=== PATIENT | female | born 1955 | race Caucasian/White ===

== ENCOUNTER → 2017-07-18 | Outpatient (CLI) | payer BC | END | disposition home or self-care (01) | LOC: KCIC MRI 10:32 | DX: M48.02 Spinal stenosis, cervical region (principal); M50.322 Other cervical disc degeneration at C5-C6 level; M47.892 Other spondylosis, cervical region | CPT/HCPCS: 72141 ==

== ENCOUNTER 2018-03-02 13:48 | Inpatient (IN) | payer BC ==
[~2018-03-02] VITALS: Ht 167.6 cm; Wt 105.7 kg
[~2018-03-02 13:48] MED LIST: ACET325T9 PO; ASPI-612 PO; BUPR150T11 PO; CANA100T PO; CETI10CA PO; CHOL500016 PO; CRESTOR5 MG PO; CYAN25008 PO; CYCL10TA2 PO; DEXL30CA PO; DULO20CA PO; FLUT9.9S NS; HYDR-2758 PO; INSU100C SQ; INSU100V8 SQ; LACT20SO PO; LEVO25TA4 PO; LISI-334 PO; LISI1TAB5 PO; MAGN250T10 PO; MELA3TAB2 PO; MELO7.5T29 PO; METO-239 PO; METO25TA4 PO; NEOM1PAC TP; OLME1TAB21 PO; OLME5TAB4 PO; PREG75CA PO; RIFA550T4 PO; TOPI15CA4 PO
[2018-03-02 16:31] VITALS: BP 140/49
[2018-03-02] MEDS ORDERED: ONDANSETRON ODT 4 MG TAB.RAPDIS. PO PRN (16:45)
[2018-03-02] MEDS ORDERED: INSULIN LISPRO 300 UNITS/3 ML INSULN.PEN. SQ SCH (17:00)
[2018-03-02] MEDS ORDERED: LACTULOSE 20 GM/30 ML SOLUTION. PO PRN (17:30)
[2018-03-02] MEDS: MELOXICAM 7.5 MG TABLET PO SCH (18:10)
[2018-03-02] MEDS: CETIRIZINE HCL 10 MG TABLET. PO SCH (18:10)
[2018-03-02] MEDS: ASPIRIN ENTERIC COATED 81 MG TABLET.DR. PO SCH (18:10)
[2018-03-02] MEDS: IV NORMAL SALINE 1000ML BAG 1,000 ML IV SCH (18:10)
[2018-03-02] MEDS: LISINOPRIL 20 MG TABLET PO SCH (18:10)
[2018-03-02] MEDS: PANTOPRAZOLE 40 MG TABLET.DR. PO SCH (18:11)
[2018-03-02] MEDS ORDERED: INSU300I SQ (18:47)
--- NOTE | 2018-03-02 18:47 | HP ---
ADMIT DATE: 03/02/2018 CHIEF COMPLAINT: Mental status change. HISTORY OF PRESENT ILLNESS: The patient is a pleasant 62-year-old female who presented to ____ ER with mental status change. Basically, they realized she had hepatic encephalopathy. Her ammonia level was 94. They called me. We have now transferred her here for consultation with GI. It should be noted that she has been evaluated at , but they did not want to go back there. They state that the sound designer really did not give much information, but they did say that she did have cirrhosis on liver biopsy. The patient has now been admitted to the medical floor. She is being examined in room 652. PAST MEDICAL HISTORY: Hepatic encephalopathy and constipation; polypharmacy, probable noncompliance; allergic rhinitis; muscle spasms; hypertension; chronic pain; depression; anxiety; diabetes; hypothyroidism; insomnia. ALLERGIES: Multiple including CEPHALEXIN, CODEINE, IODINE, please refer to the chart. FAMILY HISTORY: Her sister from cirrhosis. Her tells me that they think this was from alcohol, but he states that the patient does not drink. SOCIAL HISTORY: The family states she does not drink, smoke or take drugs. I asked them 3 times, they really insist that she does not drink. We are really suspicion she might actually drink, but they insist she does not. MEDICATIONS: Reviewed. She is on 20 of them including vitamin D, melatonin, B12, neomycin, Synthroid, insulin, Dexilant, magnesium, Flonase, lactulose, bupropion, Lyrica, hydrocodone with Tylenol ( probably she should not be on the Tylenol, I will be holding that), aspirin, lisinopril, metoprolol, cyclobenzaprine, Xifaxan, Zyrtec. REVIEW OF SYSTEMS: GENERAL: No history of weight change, weakness or fevers. SKIN: No bruising, hair changes or rashes. EYES: No blurred, double or loss of vision. NOSE AND THROAT: No history of nosebleeds, hoarseness or sore throat. HEART: No history of palpitations, chest pain or shortness of breath on exertion. LUNGS: Denies cough, hemoptysis, wheezing or shortness of breath. GASTROINTESTINAL: Denies changes in appetite, nausea, vomiting, diarrhea or constipation. GENITOURINARY: No history of frequency, urgency, hesitancy or nocturia. NEUROLOGIC: She complains of weakness and mental status change. PSYCHIATRIC: No history of panic, anxiety or depression. ENDOCRINE: No history of heat or cold intolerance, polyuria or polydipsia. EXTREMITIES: Denies muscle weakness, joint pain, pain on walking or stiffness. PHYSICAL EXAMINATION: VITAL SIGNS: Temperature afebrile, pulse 90, respirations 18, blood pressure 149/90. GENERAL: She is alert. She is awake, a little slow, but does seem to know the year and where she is. HEART: Normal S1, S2. LUNGS: Clear. ABDOMEN: Soft, no tenderness. EXTREMITIES: Trace edema. SKIN: No rashes. ENDOCRINE: No thyromegaly. LYMPHATICS: No cervical nodes. HEMATOPOIETIC: No bruising. LABORATORY DATA: Glucose is 161. Other labs are pending. ASSESSMENT AND PLAN: Hepatic encephalopathy with elevated ammonia in a middle-aged female who apparently had a biopsy at , which was consistent with a fatty liver and cirrhosis. I am concerned that she could be a cause of drinker, but again the family insists she does not drink. We will consult Dr. Khalil. Increase her lactulose. Continue her other home meds, but will hold the Tylenol products. Frequent labs, IV fluids. PROGNOSIS: Guarded. XU HUBBARD DO DR: JAI/christina JOB#: [id number] / [id number]
[2018-03-02 19:22] VITALS: BP 131/52
[2018-03-02] MEDS ORDERED: LACTULOSE 20 GM/30 ML SOLUTION. PO SCH (21:00)
[2018-03-02] MEDS ORDERED: INSULIN GLARGINE HUM REC ANLOG 50 UNIT SQ SCH (21:00)
[2018-03-02] MEDS: rifAXIMin 550 MG TABLET PO SCH (21:12)
[2018-03-02] MEDS: buPROPion SR 150 MG TABLET.SA PO SCH (21:12)
[2018-03-02] MEDS: CYCLOBENZAPRINE 10 MG TABLET. PO SCH (21:13)
[2018-03-02] MEDS: PREGABALIN 75 MG CAPSULE PO SCH (21:13)
[2018-03-02] MEDS: METOPROLOL TART IMMED RELEASE 25 MG TABLET. PO SCH (21:13)
[2018-03-02 23:35] VITALS: BP 128/52
[2018-03-03 03:49] VITALS: BP 119/46
[2018-03-03] MEDS: IV NORMAL SALINE 1000ML BAG 1,000 ML IV SCH (06:50)
[2018-03-03 07:00] VITALS: BP 123/48
[2018-03-03] MEDS ORDERED: INSULIN GLARGINE 300 UNITS/3 ML INSULN.PEN. SQ SCH (07:30)
[2018-03-03] MEDS: MELOXICAM 7.5 MG TABLET PO SCH (08:07)
[2018-03-03] MEDS: ASPIRIN ENTERIC COATED 81 MG TABLET.DR. PO SCH (08:07)
[2018-03-03] MEDS: LISINOPRIL 20 MG TABLET PO SCH (08:08)
[2018-03-03] MEDS: PANTOPRAZOLE 40 MG TABLET.DR. PO SCH (08:08)
[2018-03-03] MEDS: buPROPion SR 150 MG TABLET.SA PO SCH ×2 (08:08→21:56)
[2018-03-03] MEDS: LEVOTHYROXINE 150 MCG TABLET PO SCH (08:08)
[2018-03-03] MEDS: rifAXIMin 550 MG TABLET PO SCH ×2 (08:09→21:56)
[2018-03-03] MEDS: CETIRIZINE HCL 10 MG TABLET. PO SCH (08:10)
[2018-03-03] MEDS: METOPROLOL TART IMMED RELEASE 25 MG TABLET. PO SCH ×2 (08:10→21:56)
[2018-03-03] MEDS: PREGABALIN 75 MG CAPSULE PO SCH ×2 (08:11→21:56)
[2018-03-03] MEDS ORDERED: LACTULOSE 20 GM/30 ML SOLUTION. PO SCH ×2 (09:00→14:00)
[2018-03-03] MEDS ORDERED: ONDANSETRON PF 4 MG/2 ML VIAL. IV PRN (09:30)
[2018-03-03] MEDS ORDERED: IBUPROFEN 600 MG TABLET. PO PRN (09:30)
[2018-03-03] MEDS ORDERED: ONDANSETRON ODT 4 MG TAB.RAPDIS. PO PRN (09:30)
--- NOTE | 2018-03-03 09:34 | PDOC2 ---
GI CONSULT Reason For Consult: Hepatic encephalopathy/constipation HPI: HPI: 62 y/o female from [facility] - brought there by family for disorientation/ confusion at home. Labs there included ammonia 97, bili 1.2, AST 50, ALT 40, Alk Phos 124. H/o recurrent hyperammonemia/encephalopathy, suspected LOUIS. Since we have seen her, she was evaluated by hepatology at [facility] liver biopsy showed cirrhosis and she was advised to follow-up every 6 months. Not sure about transplant. Feels a little better this morning - maybe still a little "fuzzy," some abd discomfort, feels constipated (though last stooled overnight). At home, takes lactulose TID w/ OTC stool softeners PRN. Typically has 2 stools daily, sometimes w/ straining. Doesn't think she takes Xifaxan. H/o GERD and gastroparesis. Thinks she takes a PPI, doesn't think she follows a gastroparesis diet, recalls previous trial of Reglan as ineffective. Takes ASA and ?meloxicam daily (per med list in chart - she's not sure). US in 07/2017 w/ possible hepatic steatosis. Labs 07/2017: RA elevated (14.7), AMA elevated (21.6), TJ neg, SMA normal. GES 09/2015: markedly delayed, T1/2 750 min. EGD and colonoscopy (path): hyperplastic gastric polyp w/o H. pylori, normal colon biopsy. PMH: PMH: HTN, HLD, GERD, cirrhosis, gastroparesis, hypothyroidism, depression, cholecystectomy, appendectomy, x 2, hysterectomy oophorectomy, cardiac cath, liver biopsy FH: Family History: Other (alcoholic liver disease) Social History: ALCOHOL: none Drugs: None ROS: GEN: Denies fevers, chills, sweats HEENT: Denies blurred vision, sore throat CV: Denies chest pain RESP: Denies shortness of air, cough GI: Per HPI : Denies hematuria, dysuria ENDO: Denies weight changes NEURO: +confusion MSK: Denies weakness, joint pain/swelling SKIN: Denies jaundice, pruritus Vitals: Vitals: Vital Signs Date Time Temp Pulse Resp B/P (MAP) Pulse Ox O2 Delivery O2 Flow Rate FiO2 03/03/18 08:10 83 123/48 9/11/18 07:00 97.8 16 95 Room Air 97.8 Labs: Labs: Laboratory Tests Test 03/02/18 17:08 03/02/18 20:42 03/03/18 07:18 03/03/18 09:22 Glucose (Fingerstick) 119 mg/dL (70-99) 177 mg/dL (70-99) 119 mg/dL (70-99) 184 mg/dL (70-99) Allergies: Coded Allergies: Gadolinium-Containing Contrast Medi (Verified Allergy, Intermediate, ) acetaminophen (Verified Allergy, Intermediate, 03/02/18) cephalexin (Verified Allergy, Intermediate, 08/20/17) codeine (Verified Allergy, Intermediate, 08/20/17) iodine (Verified Allergy, Intermediate, 08/20/17) Medications: Current Medications Medications (Trade) Dose Ordered Sig/Lauren Route PRN Reason Start Time Stop Time Status Last Admin Dose Admin Aspirin (Ecotrin) 81 mg DAILY PO 03/02/18 18:00 03/03/18 08:07 Lisinopril (Prinivil) 40 mg DAILY PO 03/02/18 18:00 03/03/18 08:08 Metoprolol Tartrate (Lopressor) 25 mg BID PO 03/02/18 21:00 03/03/18 08:10 Bupropion HCl (Wellbutrin Sr) 150 mg BID PO 03/02/18 21:00 03/03/18 08:08 Cyclobenzaprine HCl (Flexeril) 10 mg QHS PO 03/02/18 21:00 03/02/18 21:13 Pregabalin (Lyrica) 75 mg BID PO 03/02/18 21:00 03/03/18 08:11 Rifaximin (Xifaxan) 550 mg Q12HR PO 03/02/18 21:00 03/03/18 08:09 Levothyroxine Sodium (Synthroid) 150 mcg DAILY07 PO 03/03/18 07:00 03/03/18 08:08 Pantoprazole Sodium (Protonix) 40 mg DAILYAC PO 03/02/18 17:30 03/03/18 08:08 Cetirizine HCl (ZyrTEC) 10 mg DAILY PO 03/02/18 18:00 9/11/18 08:10 Meloxicam (Mobic) 15 mg DAILY PO 03/02/18 18:00 03/03/18 08:07 Sodium Chloride 1,000 ml @ 75 mls/hr [id number] IV 03/02/18 17:30 03/03/18 06:50 Lactulose (Lactulose) 30 gm TID PO 03/03/18 09:00 03/03/18 08:10 Imaging: Imaging: None. PE: GEN: NAD, drinking coffee HEENT: Atraumatic, PERRL LUNGS: CTAB HEART: RRR ABD: NABS, soft, vague tenderness RUQ EXTREMITY: No edema SKIN: No rashes, no jaundice NEURO/PSYCH: A & O 3 - a bit slow to answer some questions A/P: A/P: Hepatic encephalopathy, h/o cirrhosis/LOUIS - recent eval w/ [facility] hepatology Abd discomfort - ?constipation, h/o GERD and gastroparesis CRC screen - UTD S/p cholecystectomy -- Still probably a little confused - not sure about home meds. Agree w/ lactulose - adjust dosing for goal of 2-3 stools daily. Agree w/ Xifaxan and PPI. Encouraged gastroparesis diet - small frequent meals. Labs are pending today. Update - called by RN at this time, pt had a small hard stool w/ red blood around it. Monitor for bleeding, monitor labs. BEVERLEY TOBAR Mar 03, 2018 09:34
[2018-03-03] MEDS ORDERED: CETIRIZINE HCL 10 MG TABLET. PO PRN (09:45)
[2018-03-03] MEDS: FLUTICASONE 50MCG/NASAL SPRAY 16GM BOTTLE. NS SCH (10:00)
[2018-03-03 10:29] LABS: BASO % 1 % (0-3); EOS # 0.1 x10^3/uL (0.0-0.7); EOS % 2 % (0-3); HEMATOCRIT 38.1 % (36.0-47.0); HEMOGLOBIN 12.8 g/dL (12.0-15.5); LYMPH # 1.6 x10^3/uL (1.0-4.8); LYMPH % 29 % (24-48); MEAN CORPUSCULAR HEMOGLOBIN 32 pg (25-35); MEAN CORPUSCULAR HGB CONC 34 g/dL (31-37); MEAN CORPUSCULAR VOLUME 94 fL (79-100); MONO # 0.6 x10^3/uL (0.0-1.1); MONO % 12 % (0-9); NEUT # 3.2 x10^3uL (1.8-7.7); NEUT % 57 % (31-73); PLATELET COUNT 135 x10^3/uL (140-400); RED BLOOD COUNT 4.07 x10^6/uL (3.50-5.40); RED CELL DISTRIBUTION WIDTH 14.4 % (11.5-14.5); WHITE BLOOD COUNT 5.7 x10^3/uL (4.0-11.0)
[2018-03-03] MEDS ORDERED: SODIUM PHOSPHATES 19/7GM 133 ML ENEMA. PR PRN (10:45)
[2018-03-03] MEDS ORDERED: SODIUM PHOSPHATES 19/7GM 133 ML ENEMA. PR ONE (10:45)
[2018-03-03 10:49] LABS: ALBUMIN 2.9 g/dL (3.4-5.0); ALBUMIN/GLOBULIN RATIO 0.7 (1.0-1.7); CALCIUM 9.4 mg/dL (8.5-10.1); CREATININE 0.8 mg/dL (0.6-1.0); GFR 72.9; POTASSIUM 3.9 mmol/L (3.5-5.1); TOTAL BILIRUBIN 1.3 mg/dL (0.2-1.0)
[2018-03-03] MEDS: VITAMIN B12,B9,B6 COMPLEX 1 TABLET. PO SCH (10:49)
[2018-03-03] MEDS: CHOLECALCIFEROL (VITAMIN D3) 5,000 UNIT CAPSULE PO SCH (10:49)
[2018-03-03] MEDS: MAGNESIUM OXIDE 400 MG TABLET PO SCH (10:49)
[2018-03-03] MEDS: LINACLOTIDE 145 MCG CAPSULE. PO SCH (10:51)
--- NOTE | 2018-03-03 10:53 | PDOC ---
PROGRESS NOTES Chief Complaint Chief Complaint hepatic encephalopathy with ammonia 100 ondmission Liver cirrhosis by biopsy in [facility] Obesity, BMI 38 Constipation Decreased mobility-generalized weakness Hypothyroidism on Synthroid Diabetes type 2 on hefty doses insulin with unknown hemoglobin A1c History of Present Illness History of Present Illness Confusion seems better as per family at bedside Constipated, despite mag citrate Colace, MiraLAX [id number] Not on any narcotics or at least denies it at home No labs today-I did order stat labs and repeat ammonia is 100 PLAN: NO discharge today since ammonia still high Lactulose 30 mL scheduled Fleet enema now Trial of linzes if okay with GI Check hemoglobin A1c So far not needing very high doses of lispro-we'll do sliding scale insulin high -dose and hold fast acting if blood sugars are not too high Check TSH T3-T4 To pharmacy: she takes Synthroid 125 instead of 50 dose Vitals Vitals Vital Signs Date Time Temp Pulse Resp B/P (MAP) Pulse Ox O2 Delivery O2 Flow Rate FiO2 03/03/18 08:10 83 123/48 03/03/18 07:00 97.8 16 95 Room Air 97.8 Physical Exam General: Alert, Oriented X3, Cooperative, No acute distress Heart: Regular rate, Normal S1, Normal S2, No murmurs Lungs: Clear Abdomen: Normal bowel sounds, Soft, No tenderness Extremities: No clubbing, No cyanosis, No edema Skin: No rashes, No breakdown Labs LABS Laboratory Tests Test 03/02/18 17:08 03/02/18 20:42 03/03/18 07:18 03/03/18 09:22 Glucose (Fingerstick) 119 mg/dL (70-99) 177 mg/dL (70-99) 119 mg/dL (70-99) 184 mg/dL (70-99) Test 03/03/18 09:55 White Blood Count 5.7 x10^3/uL (4.0-11.0) Red Blood Count 4.07 x10^6/uL (3.50-5.40) Hemoglobin 12.8 g/dL (12.0-15.5) Hematocrit 38.1 % (36.0-47.0) Mean Corpuscular Volume 94 fL (79-100) Mean Corpuscular Hemoglobin 32 pg (25-35) Mean Corpuscular Hemoglobin Concent 34 g/dL (31-37) Red Cell Distribution Width 14.4 % (11.5-14.5) Platelet Count 135 x10^3/uL (140-400) Neutrophils (%) (Auto) 57 % (31-73) Lymphocytes (%) (Auto) 29 % (24-48) Monocytes (%) (Auto) 12 % (0-9) Eosinophils (%) (Auto) 2 % (0-3) Basophils (%) (Auto) 1 % (0-3) Neutrophils # (Auto) 3.2 x10^3uL (1.8-7.7) Lymphocytes # (Auto) 1.6 x10^3/uL (1.0-4.8) Monocytes # (Auto) 0.6 x10^3/uL (0.0-1.1) Eosinophils # (Auto) 0.1 x10^3/uL (0.0-0.7) Basophils # (Auto) 0.0 x10^3/uL (0.0-0.2) Ammonia 101 mcmol/L (11-34) Review of Systems Review of Systems Constipated, some mild confusion otherwise rest of ROS 14 point negative Comment Review of Relevant I have reviewed the following items yousuf (where applicable) has been applied. Labs Laboratory Tests Test 03/02/18 17:08 03/02/18 20:42 03/03/18 07:18 03/03/18 09:22 Glucose (Fingerstick) 119 mg/dL (70-99) 177 mg/dL (70-99) 119 mg/dL (70-99) 184 mg/dL (70-99) Test 03/03/18 09:55 White Blood Count 5.7 x10^3/uL (4.0-11.0) Red Blood Count 4.07 x10^6/uL (3.50-5.40) Hemoglobin 12.8 g/dL (12.0-15.5) Hematocrit 38.1 % (36.0-47.0) Mean Corpuscular Volume 94 fL (79-100) Mean Corpuscular Hemoglobin 32 pg (25-35) Mean Corpuscular Hemoglobin Concent 34 g/dL (31-37) Red Cell Distribution Width 14.4 % (11.5-14.5) Platelet Count 135 x10^3/uL (140-400) Neutrophils (%) (Auto) 57 % (31-73) Lymphocytes (%) (Auto) 29 % (24-48) Monocytes (%) (Auto) 12 % (0-9) Eosinophils (%) (Auto) 2 % (0-3) Basophils (%) (Auto) 1 % (0-3) Neutrophils # (Auto) 3.2 x10^3uL (1.8-7.7) Lymphocytes # (Auto) 1.6 x10^3/uL (1.0-4.8) Monocytes # (Auto) 0.6 x10^3/uL (0.0-1.1) Eosinophils # (Auto) 0.1 x10^3/uL (0.0-0.7) Basophils # (Auto) 0.0 x10^3/uL (0.0-0.2) Ammonia 101 mcmol/L (11-34) Laboratory Tests Test 03/02/18 17:08 03/02/18 20:42 03/03/18 07:18 03/03/18 09:22 Glucose (Fingerstick) 119 mg/dL (70-99) 177 mg/dL (70-99) 119 mg/dL (70-99) 184 mg/dL (70-99) Test 03/03/18 09:55 White Blood Count 5.7 x10^3/uL (4.0-11.0) Red Blood Count 4.07 x10^6/uL (3.50-5.40) Hemoglobin 12.8 g/dL (12.0-15.5) Hematocrit 38.1 % (36.0-47.0) Mean Corpuscular Volume 94 fL (79-100) Mean Corpuscular Hemoglobin 32 pg (25-35) Mean Corpuscular Hemoglobin Concent 34 g/dL (31-37) Red Cell Distribution Width 14.4 % (11.5-14.5) Platelet Count 135 x10^3/uL (140-400) Neutrophils (%) (Auto) 57 % (31-73) Lymphocytes (%) (Auto) 29 % (24-48) Monocytes (%) (Auto) 12 % (0-9) Eosinophils (%) (Auto) 2 % (0-3) Basophils (%) (Auto) 1 % (0-3) Neutrophils # (Auto) 3.2 x10^3uL (1.8-7.7) Lymphocytes # (Auto) 1.6 x10^3/uL (1.0-4.8) Monocytes # (Auto) 0.6 x10^3/uL (0.0-1.1) Eosinophils # (Auto) 0.1 x10^3/uL (0.0-0.7) Basophils # (Auto) 0.0 x10^3/uL (0.0-0.2) Ammonia 101 mcmol/L (11-34) Medications Current Medications Aspirin (Ecotrin) 81 mg DAILY PO Last administered on 03/03/18 08:07; Start at 18:00 Lisinopril (Prinivil) 40 mg DAILY PO Last administered on 03/03/18 08:08; Start 03/02/18 at 18:00 Metoprolol Tartrate (Lopressor) 25 mg BID PO Last administered on 03/03/18 08: 10; Start 03/02/18 at 21:00 Bupropion HCl (Wellbutrin Sr) 150 mg BID PO Last administered on 03/03/18 08: 08; Start 03/02/18 at 21:00 Cyclobenzaprine HCl (Flexeril) 10 mg QHS PO Last administered on 03/02/18at 21: 13; Start 03/02/18 at 21:00 Lactulose (Lactulose) 20 gm BID PO ; Start 03/02/18 at 21:00; Stop 03/02/18 at 21:00; Status DC Pregabalin (Lyrica) 75 mg BID PO Last administered on 03/03/18at 08:11; Start at 21:00 Rifaximin (Xifaxan) 550 mg Q12HR PO Last administered on 03/03/18 08:09; Start 03/02/18 at 21:00 Levothyroxine Sodium (Synthroid) 150 mcg DAILY07 PO Last administered on 08:08; Start 03/03/18 at 07:00 Pantoprazole Sodium (Protonix) 40 mg DAILYAC PO Last administered on 03/03/18 08:08; Start 03/02/18 at 17:30 Cetirizine HCl (ZyrTEC) 10 mg DAILY PO Last administered on 03/03/18at 08:10; Start 03/02/18 at 18:00 Meloxicam (Mobic) 15 mg DAILY PO Last administered on 03/03/18at 08:07; Start at 18:00 Ondansetron HCl (Zofran Odt) 8 mg PRN TID PRN PO NAUSEA/VOMITING; Start at 16:45; Stop 03/03/18 at 09:48; Status DC Insulin Glargine (Lantus) 50 units BIDAC SQ ; Start 03/03/18 at 07:30; Status Cancel Insulin Human Lispro (HumaLOG) 42 units TIDWMEALS SQ ; Start 03/02/18 at 17:00 Lactulose (Lactulose) 30 gm PRN TID PRN PO CONSTIPATION; Start 03/02/18 at 17: 30; Status Cancel Sodium Chloride 1,000 ml @ 75 mls/hr [id number] IV Last administered on at 06:50; Start 03/02/18 at 17:30 Non-Formulary Medication (Insulin Glargine,Hum.rec.anlog (Toujeo Solostar)) 50 unit BID SQ ; Start 03/02/18 at 21:00; Stop 03/03/18 at 09:40; Status DC Lactulose (Lactulose) 30 gm TID PO Last administered on 03/03/18at 08:10; Start 03/03/18 at 09:00; Stop 03/03/18 at 10:37; Status DC Ondansetron HCl (Zofran) 4 mg PRN Q6HRS PRN IV NAUSEA/VOMITING; Start 03/03/18 at 09:30 Ondansetron HCl (Zofran Odt) 4 mg PRN Q6HRS PRN PO NAUSEA/VOMITING; Start 03/03 at 09:30 Fentanyl Citrate (Fentanyl 2ml Vial) 50 mcg PRN Q2HR PRN IV SEVERE PAIN; Start 03/03/18 at 09:30 Ibuprofen (Motrin) 600 mg PRN Q6HRS PRN PO INFLAMMATION; Start 03/03/18 at 09: 30; Stop 03/03/18 at 10:38; Status DC Neomycin/ Polymyxin/ Bacitracin (Triple Antibiotic Ointment) 1 pkt HS TP ; Start 03/03/18 at 21:00 Fluticasone Propionate (Flonase) 2 spray DAILY NS ; Start 03/03/18 at 10:00 Non-Formulary Medication (Levothyroxine Sodium ) 1 tab DAILY PO ; Start at 09:00; Status UNV Non-Formulary Medication (Melatonin ) 10 mg HS PO ; Start 03/03/18 at 21:00; Status UNV Cetirizine HCl (ZyrTEC) 10 mg PRN DAILY PRN PO ALLERGIES; Start 03/03/18 at 09: 45 Vitamin D (Vitamin D3) 5,000 unit DAILY PO ; Start 03/03/18 at 10:00 Vitamin B Complex (Folbic Tablet) 1 tab DAILY PO ; Start 03/03/18 at 10:00 Pantoprazole Sodium (Protonix) 40 mg DAILYAC PO ; Start 03/03/18 at 11:30 Magnesium Oxide (Magnesium Oxide) 400 mg DAILY PO ; Start 03/03/18 at 10:00 Insulin Glargine (Lantus) 40 units BID SQ ; Start 03/03/18 at 21:00 Lactulose (Lactulose) 30 gm QID PO ; Start 03/03/18 at 13:00 Sodium Monofluorophosphate (Fleet Adult) 133 ml 1X ONCE FL ; Start 03/03/18 at 10:45; Stop 03/03/18 at 10:48; Status DC Sodium Monofluorophosphate (Fleet Adult) 133 ml PRN DAILY PRN FL CONSTIPATION; Start 03/03/18 at 10:45 Linaclotide (Linzess) 145 mcg DAILY07 PO ; Start 03/03/18 at 10:45 Active Scripts Active Hydrocodone-Apap 5-325 (Hydrocodone Bit/Acetaminophen) 1 Each Tablet 1 Tab PO PRN Q4HRS PRN 7 Days Metoprolol Tartrate 25 Mg Tablet 25 Mg PO BID 30 Days Lactulose 20 Gm/30 Ml Solution 20 Gm PO BID 30 Days Lisinopril 20 Mg Tablet 40 Mg PO DAILY 30 Days Xifaxan (Rifaximin) 550 Mg Tablet 550 Mg PO Q12HR 30 Days Reported Bozena Weberostar (Insulin Glargine,Hum.rec.anlog) 300 Unit/1 Ml Insuln.pen 50 Unit SQ BID Triple Antibiotic Ointment (Neomy Sulf/Bacitra/Polymyxin B) 1 Each Packet 1 Each TP HS Zyrtec (Cetirizine Hcl) 10 Mg Capsule 10 Mg PO Magnesium (Magnesium Oxide) 250 Mg Tablet 250 Mg PO Vitamin B12 (Cyanocobalamin (Vitamin B-12)) 2,500 Mcg Tablet 2,500 Mcg PO Aspirin Ec (Aspirin) 81 Mg Tablet. 1 Tab PO DAILY Vitamin D3 (Cholecalciferol (Vitamin D3)) 5,000 Unit Tablet 5,000 Unit PO Melatonin 3 Mg Tablet 10 Mg PO HS Lyrica (Pregabalin) 75 Mg Capsule 75 Mg PO BID Cyclobenzaprine Hcl 10 Mg Tablet 1 Tab PO QHS Bupropion Hcl Sr (Bupropion Hcl) 150 Mg Tablet.er 1 Tab PO BID Flonase Allergy Relief (Fluticasone Propionate) 9.9 Ml Peever.susp 2 Sprays NS DAILY Levothyroxine Sodium 25 Mcg Tablet 1 Tab PO DAILY Humalog (Insulin Lispro) 100 Unit/1 Ml Cartridge 42 Unit SQ TIDAC Dexilant (Dexlansoprazole) 30 Mg Homero.mp 30 Mg PO Vitals/I & O Vital Sign - Last 24 Hours 03/02/18 03/02/18 03/02/18 03/02/18 16:31 18:10 18:39 19:22 Temp 98.4 98.4 98.4 98.4 Pulse 90 90 95 Resp 18 20 B/P (MAP) 140/49 (79) 140/49 131/52 (78) Pulse Ox 97 99 O2 Delivery Room Air Room Air Room Air 03/02/18 03/02/18 03/02/18 03/03/18 20:00 21:13 23:35 03:49 Temp 98.2 98.3 98.2 98.3 Pulse 95 93 84 Resp 18 18 B/P (MAP) 131/52 128/52 (77) 119/46 (70) Pulse Ox 97 96 O2 Delivery Room Air Room Air Room Air 03/03/18 03/03/18 03/03/18 07:00 08:08 08:10 Temp 97.8 97.8 Pulse 83 83 83 Resp 16 B/P (MAP) 123/48 (73) 123/48 123/48 Pulse Ox 95 O2 Delivery Room Air Intake and Output 03/02/18 03/02/18 03/03/18 15:00 23:00 07:00 Intake Total 220 ml 240 ml Balance 220 ml 240 ml GLENIS VALENZUELA MD Mar 03, 2018 10:53
[2018-03-03 11:00] VITALS: BP 153/59
[2018-03-03] MEDS ORDERED: MAGNESIUM HYDROXIDE 2,400 MG/30 ML ORAL.SUSP. PO PRN (11:00)
[2018-03-03] MEDS ORDERED: DEXTROSE 50% 25 GM / 50ML DISP.SYRIN. IV PRN (11:00)
[2018-03-03] MEDS ORDERED: BISACODYL 10 MG SUPP.RECT. PR PRN (11:00)
[2018-03-03] MEDS ORDERED: PANTOPRAZOLE 40 MG TABLET.DR. PO SCH (11:30)
[2018-03-03 11:34] LABS: FREE T4 1.53 ng/dL (0.76-1.46); THYROID STIM HORMONE (TSH) 0.17 uIU/mL (0.358-3.74)
--- NOTE | 2018-03-03 11:49 | RAD ---
CT of the head without contrast, 03/03/2018: HISTORY: Confusion The ventricles are within normal limits in size. There is no shift of the midline structures. There is no evidence of acute intracranial hemorrhage or mass effect. IMPRESSION: No acute intracranial abnormality is detected. Electronically signed by: Kapil Cardona MD (03/03/2018 11:46 AM) [facility]
[2018-03-03] MEDS: LACTULOSE 20 GM/30 ML SOLUTION. PO SCH ×3 (13:01→21:55)
[2018-03-03] MEDS: POLYETHYLENE GLYCOL 3350 17 GM PACKET. PO SCH (13:01)
[2018-03-03] MEDS: DOCUSATE SODIUM 100 MG CAPSULE. PO SCH ×2 (13:01→21:57)
[2018-03-03] MEDS: INSULIN LISPRO 300 UNITS/3 ML INSULN.PEN. SQ SCH ×2 (13:03→17:00)
[2018-03-03 15:00] VITALS: BP 134/60
[2018-03-03 17:26] LABS: HEMOGLOBIN A1C 8.2 % (4.8-5.6)
[2018-03-03 19:16] VITALS: BP 118/49
[2018-03-03] MEDS ORDERED: NON FORMULARY ITEM (Melatonin 10 MG) PO SCH (21:00)
[2018-03-03] MEDS ORDERED: NEOMY/BACITR/POLYMYXIN OINT PACKET. TP SCH (21:00)
[2018-03-03] MEDS: CYCLOBENZAPRINE 10 MG TABLET. PO SCH (21:57)
[2018-03-03] MEDS: INSULIN GLARGINE 300 UNITS/3 ML INSULN.PEN. SQ SCH (22:06)
[2018-03-03 22:51] VITALS: BP 139/49
[2018-03-04] MEDS: fentaNYL PF VIAL 100 MCG/2 ML VIAL IV PRN ×2 (01:45→06:53)
[2018-03-04 02:55] VITALS: BP 123/97
[2018-03-04] MEDS: LEVOTHYROXINE 150 MCG TABLET PO SCH (06:18)
[2018-03-04] MEDS: LINACLOTIDE 145 MCG CAPSULE. PO SCH (06:19)
[2018-03-04 07:00] VITALS: BP 114/47
[2018-03-04] MEDS: INSULIN LISPRO 300 UNITS/3 ML INSULN.PEN. SQ SCH (08:00)
[2018-03-04] MEDS: PREGABALIN 75 MG CAPSULE PO SCH (08:25)
[2018-03-04] MEDS: ASPIRIN ENTERIC COATED 81 MG TABLET.DR. PO SCH (08:25)
[2018-03-04] MEDS: buPROPion SR 150 MG TABLET.SA PO SCH (08:25)
[2018-03-04] MEDS: DOCUSATE SODIUM 100 MG CAPSULE. PO SCH (08:25)
[2018-03-04] MEDS: VITAMIN B12,B9,B6 COMPLEX 1 TABLET. PO SCH (08:25)
[2018-03-04] MEDS: CHOLECALCIFEROL (VITAMIN D3) 5,000 UNIT CAPSULE PO SCH (08:25)
[2018-03-04] MEDS: MAGNESIUM OXIDE 400 MG TABLET PO SCH (08:26)
[2018-03-04] MEDS: PANTOPRAZOLE 40 MG TABLET.DR. PO SCH (08:26)
[2018-03-04] MEDS: MELOXICAM 7.5 MG TABLET PO SCH (08:27)
[2018-03-04] MEDS: LISINOPRIL 20 MG TABLET PO SCH (08:27)
[2018-03-04] MEDS: METOPROLOL TART IMMED RELEASE 25 MG TABLET. PO SCH (08:27)
[2018-03-04] MEDS: rifAXIMin 550 MG TABLET PO SCH (08:28)
[2018-03-04] MEDS: FLUTICASONE 50MCG/NASAL SPRAY 16GM BOTTLE. NS SCH (08:29)
[2018-03-04] MEDS: POLYETHYLENE GLYCOL 3350 17 GM PACKET. PO SCH (08:30)
[2018-03-04] MEDS: INSULIN GLARGINE 300 UNITS/3 ML INSULN.PEN. SQ SCH (08:33)
[2018-03-04] MEDS: LACTULOSE 20 GM/30 ML SOLUTION. PO SCH ×2 (09:00→12:07)
[2018-03-04] MEDS ORDERED: NON FORMULARY ITEM (Levothyroxine Sodium 1 TAB) PO SCH (09:00)
[2018-03-04 11:00] VITALS: BP 107/36
[2018-03-04] MEDS ORDERED: LINA145C PO (12:29)
--- NOTE | 2018-03-04 13:08 | PDOC ---
Subjective: Subjective: Thinking more clearly. Tolerating PO - has stooled 4 times, a little blood once. Wants to go home. Family tells me saw Dr. Rodgers last month for EGD and colonoscopy - was told not to drink tea and her esophagus was stretched. Objective: Vital Signs: Vital Signs Date Time Temp Pulse Resp B/P (MAP) Pulse Ox O2 Delivery O2 Flow Rate FiO2 03/04/18 11:00 98.0 78 16 107/36 (59) 96 Room Air 98.0 Labs: Laboratory Tests Test 03/03/18 17:41 03/03/18 22:02 03/04/18 07:52 03/04/18 09:40 Glucose (Fingerstick) 171 mg/dL 194 mg/dL 130 mg/dL Ammonia 53 mcmol/L Test 03/04/18 12:10 Glucose (Fingerstick) 223 mg/dL PE: GEN: NAD, drinking coffee LUNGS: CTAB HEART: RRR ABD: S/ND/NT NEURO/PSYCH: A & O 3 - answers more quickly today A/P: Cirrhosis w/ HE - ammonia and confusion improved GERD Gastroparesis Constipation - better -- She and her family would like to discharge today - defer to primary. Continue lactulose and Xifaxan - goal of 2-3 stools daily. She has been seen at , [facility], and [facility] - most recently saw Dr. Rodgers for ' scopes. Advised to her to choose one social services manager/cafeteria server and follow -up with them. BEVERLEY TOBAR Mar 04, 2018 13:08 FUNMILAYO HANEY MD Mar 04, 2018 14:03
--- NOTE | 2018-03-04 13:26 | PDOC3 ---
Discharge Summary Visit Information Date of Admission: Mar 02, 2018 Date of Discharge: Mar 04, 2018 Admitting Diagnosis Comment: hepatic encephalopathy with ammonia 100 ondmission Liver cirrhosis by biopsy in [facility] Obesity, BMI 38 Constipation Decreased mobility-generalized weakness Hypothyroidism on Synthroid Diabetes type 2 on hefty doses insulin with unknown hemoglobin A1c Brief Hospital Course Allergies Allergies Coded Allergies Type Severity Reaction Last Updated Verified Gadolinium-Containing Contrast Medi Allergy Intermediate 07/18/17 Yes acetaminophen Allergy Intermediate 03/02/18 Yes cephalexin Allergy Intermediate 08/20/17 Yes codeine Allergy Intermediate 08/20/17 Yes iodine Allergy Intermediate 08/20/17 Yes Vital Signs Vital Signs Date Time Temp Pulse Resp B/P (MAP) Pulse Ox O2 Delivery O2 Flow Rate FiO2 03/04/18 11:00 98.0 78 16 107/36 (59) 96 Room Air 98.0 Lab Results Laboratory Tests Test 03/02/18 17:08 03/02/18 20:42 03/03/18 07:18 03/03/18 09:22 Glucose (Fingerstick) 119 mg/dL (70-99) 177 mg/dL (70-99) 119 mg/dL (70-99) 184 mg/dL (70-99) Test 03/03/18 09:55 03/03/18 12:00 03/03/18 17:41 03/03/18 22:02 White Blood Count 5.7 x10^3/uL (4.0-11.0) Red Blood Count 4.07 x10^6/uL (3.50-5.40) Hemoglobin 12.8 g/dL (12.0-15.5) Hematocrit 38.1 % (36.0-47.0) Mean Corpuscular Volume 94 fL (79-100) Mean Corpuscular Hemoglobin 32 pg (25-35) Mean Corpuscular Hemoglobin Concent 34 g/dL (31-37) Red Cell Distribution Width 14.4 % (11.5-14.5) Platelet Count 135 x10^3/uL (140-400) Neutrophils (%) (Auto) 57 % (31-73) Lymphocytes (%) (Auto) 29 % (24-48) Monocytes (%) (Auto) 12 % (0-9) Eosinophils (%) (Auto) 2 % (0-3) Basophils (%) (Auto) 1 % (0-3) Neutrophils # (Auto) 3.2 x10^3uL (1.8-7.7) Lymphocytes # (Auto) 1.6 x10^3/uL (1.0-4.8) Monocytes # (Auto) 0.6 x10^3/uL (0.0-1.1) Eosinophils # (Auto) 0.1 x10^3/uL (0.0-0.7) Basophils # (Auto) 0.0 x10^3/uL (0.0-0.2) Sodium Level 144 mmol/L (136-145) Potassium Level 3.9 mmol/L (3.5-5.1) Chloride Level 110 mmol/L (98-107) Carbon Dioxide Level 21 mmol/L (21-32) Anion Gap 13 (6-14) Blood Urea Nitrogen 17 mg/dL (7-20) Creatinine 0.8 mg/dL (0.6-1.0) Estimated GFR (Cockcroft-Gault) 72.9 BUN/Creatinine Ratio 21 (6-20) Glucose Level 208 mg/dL (70-99) Hemoglobin A1c 8.2 % (4.8-5.6) Calcium Level 9.4 mg/dL (8.5-10.1) Total Bilirubin 1.3 mg/dL (0.2-1.0) Aspartate Amino Transf (AST/SGOT) 35 U/L (15-37) Alanine Aminotransferase (ALT/SGPT) 38 U/L (14-59) Alkaline Phosphatase 100 U/L (46-116) Ammonia 101 mcmol/L (11-34) Total Protein 7.0 g/dL (6.4-8.2) Albumin 2.9 g/dL (3.4-5.0) Albumin/Globulin Ratio 0.7 (1.0-1.7) Thyroid Stimulating Hormone (TSH) 0.170 uIU/mL (0.358-3.74) Free Thyroxine 1.53 ng/dL (0.76-1.46) Free Triiodothyronine (T3) pg/mL 2.25 pg/mL (2.18-3.98) Glucose (Fingerstick) 220 mg/dL (70-99) 171 mg/dL (70-99) 194 mg/dL (70-99) Test 03/04/18 07:52 03/04/18 09:40 03/04/18 12:10 Glucose (Fingerstick) 130 mg/dL (70-99) 223 mg/dL (70-99) Ammonia 53 mcmol/L (11-34) Laboratory Tests Test 03/03/18 17:41 03/03/18 22:02 03/04/18 07:52 03/04/18 09:40 Glucose (Fingerstick) 171 mg/dL (70-99) 194 mg/dL (70-99) 130 mg/dL (70-99) Ammonia 53 mcmol/L (11-34) Test 03/04/18 12:10 Glucose (Fingerstick) 223 mg/dL (70-99) Brief Hospital Course Ms. Mallory is a 62 old female who lives at home with family, known diagnosis of liver cirrhosis by biopsy at recently, comes in because of confusion with ammonia of 100. Already on lactulose at home most likely not having stool, she reports to me trial of multiple bowel regimen over-the- counter with no results. I did continue lactulose and did Fleet enema and she moved BM and her ammonia on discharge is 50 with normal jehovah's witness of mentation , HEr CT head is negative. Discharging today on linzess and Fleet enema which is teos-ahl-[id number]. Requested some pain medications I have provided a couple. No PT needs, discussed with multiple family members at bedside, patient seen and examined Consults performed GI Procedures performed Fleet enema Discharge Information Condition at Discharge: Improved, Stable Scheduled Aspirin (Aspirin Ec) 81 Mg Tablet.dr, 1 TAB PO DAILY, #30 Ref 3 (Reported) Entered as Reported by: RYAN JOHNSON on 08/19/17 1342 Last Action: Continued on 03/02/181705 by PRASAD SO Bupropion Hcl (Bupropion Hcl Sr) 150 Mg Tablet.er, 1 TAB PO BID, #60 Ref 5 ( Reported) Entered as Reported by: RYAN JOHNSON on 08/19/171333 Last Action: Continued on 03/02/181705 by PRASAD SO Cyclobenzaprine Hcl (Cyclobenzaprine Hcl) 10 Mg Tablet, 1 TAB PO QHS, #30 ( Reported) Entered as Reported by: RYAN JOHNSON on 08/19/174 Last Action: Continued on 03/02/181705 by PRASAD SO Fluticasone Propionate (Flonase Allergy Relief) 9.9 Ml [place].susp, 2 SPRAYS NS DAILY, (Reported) Entered as Reported by: RYAN JOHNSON on 08/19/171333 Last Action: Converted on 03/03/18932 by GLENIS VALENZUELA Insulin Glargine,Hum.rec.anlog (Toujeo Solostar) 300 Unit/1 Ml Insuln.pen, 50 UNIT SQ BID, (Reported) Entered as Reported by: SOHAN GUNDERSON on 03/02/181846 Last Taken: Unknown Dose on Unknown Date & Time Last Action: Converted on 03/02/181848 by SOHAN GUNDERSON Insulin Lispro (Humalog) 100 Unit/1 Ml Cartridge, 42 UNIT SQ TIDAC, (Reported) Entered as Reported by: FUNMILAYO BERUMEN on 02/20/16 1525 Last Action: HELD on 03/03/18932 by GLENIS VALENZUELA Lactulose (Lactulose) 20 Gm/30 Ml Solution, 20 GM PO BID for 30 Days, #30 Prescribed by: ARNULFO TADEO MD on 08/20/17 1417 Last Action: Continued on 03/02/181705 by PRASAD SO Levothyroxine Sodium (Levothyroxine Sodium) 25 Mcg Tablet, 1 TAB PO DAILY, #30 Ref 5 (Reported) Entered as Reported by: FUNMILAYO BERUMEN on 02/20/16 1525 Last Action: Converted on 03/03/18932 by GLENIS VALENZUELA Linaclotide (Linzess) 145 Mcg Capsule, 145 MCG PO DAILY for 14 Days, #14 Prescribed by: GLENIS VALENZUELA on 03/04/18 1229 Lisinopril (Lisinopril) 20 Mg Tablet, 40 MG PO DAILY for 30 Days, #60 Prescribed by: ARNULFO TADEO MD on 08/20/17 1417 Last Action: Continued on 03/02/181705 by PRASAD SO Melatonin (Melatonin) 3 Mg Tablet, 10 MG PO HS, (Reported) Entered as Reported by: RYAN JOHNSON on 08/19/171333 Last Action: Converted on 03/03/18932 by GLENIS VALENZUELA Metoprolol Tartrate (Metoprolol Tartrate) 25 Mg Tablet, 25 MG PO BID for 30 Days , #60 Prescribed by: ARNULFO TADEO MD on 08/20/171416 Last Action: Continued on 03/02/181705 by PRASAD SO Neomy Sulf/Bacitra/Polymyxin B (Triple Antibiotic Ointment) 1 Each Packet, 1 EACH TP HS, (Reported) Entered as Reported by: RYAN JOHNSON on 08/19/171342 Last Action: Continued on 03/03/18932 by GLENIS VALENZUELA Pregabalin (Lyrica) 75 Mg Capsule, 75 MG PO BID, (Reported) Entered as Reported by: RYAN JOHNSON on 08/19/171333 Last Action: Continued on 03/02/181705 by PRASAD SO Rifaximin (Xifaxan) 550 Mg Tablet, 550 MG PO Q12HR for 30 Days, #60 Prescribed by: ARNULFO TADEO MD on 08/20/171416 Last Action: Continued on 03/02/181705 by PRASAD SO Scheduled PRN Hydrocodone Bit/Acetaminophen (Hydrocodone-Apap 5-325 ) 1 Each Tablet, 1 TAB PO PRN Q4HRS PRN for PAIN MILD TO MOD for 7 Days, #28 Prescribed by: ARNULFO TADEO MD on 08/20/171416 Last Action: HELD on 03/03/18932 by GLENIS VALENZUELA Miscellaneous Medications Cetirizine Hcl (Zyrtec) 10 Mg Capsule, 10 MG PO, (Reported) Entered as Reported by: RYAN JOHNSON on 08/19/171341 Last Action: Converted on 03/03/18932 by GLENIS VALENZUELA Cholecalciferol (Vitamin D3) (Vitamin D3) 5,000 Unit Tablet, 5,000 UNIT PO, ( Reported) Entered as Reported by: RYAN JOHNSON on 08/19/171341 Last Action: Converted on 03/03/18932 by GLENIS VALENZUELA Cyanocobalamin (Vitamin B-12) (Vitamin B12) 2,500 Mcg Tablet, 2,500 MCG PO, ( Reported) Entered as Reported by: RYAN JOHNSON on 08/19/171341 Last Action: Converted on 03/03/18932 by GLENIS VALENZUELA Dexlansoprazole (Dexilant) 30 Mg Homero., 30 MG PO, (Reported) Entered as Reported by: FUNMILAYO BERUMEN on 02/20/16 1525 Last Action: Converted on 03/03/18932 by GLENIS VALENZUELA Magnesium Oxide (Magnesium) 250 Mg Tablet, 250 MG PO, (Reported) Entered as Reported by: RYAN JOHNSON on 08/19/17 1342 Last Action: Converted on 03/03/18932 by GLENIS ANDRES MD Mar 04, 2018 13:26
== END 2018-03-04 13:25 | disposition home or self-care (01) | DRG 443 ==
LOC: 6 SOUTH 15:56
PROVIDERS: ADMIT Internal Medicine; ATTEND Internal Medicine
DX: K72.90 Hepatic failure, unspecified without coma (principal); K74.60 Unspecified cirrhosis of liver; F41.8 Other specified anxiety disorders; I10 Essential (primary) hypertension; F32.9 Major depressive disorder, single episode, unspecified; E03.9 Hypothyroidism, unspecified; G47.00 Insomnia, unspecified; K76.0 Fatty (change of) liver, not elsewhere classified; G89.29 Other chronic pain; J30.9 Allergic rhinitis, unspecified; K21.9 Gastro-esophageal reflux disease without esophagitis; E11.43 Type 2 diabetes mellitus with diabetic autonomic (poly)neuropathy; K31.84 Gastroparesis; E78.5 Hyperlipidemia, unspecified; K59.00 Constipation, unspecified; E66.9 Obesity, unspecified; Z68.38 Body mass index [BMI] 38.0-38.9, adult; Z90.710 Acquired absence of both cervix and uterus; Z90.721 Acquired absence of ovaries, unilateral; Z79.4 Long term (current) use of insulin; Z91.041 Radiographic dye allergy status; Z91.19 Patient's noncompliance with other medical treatment and regimen; Z88.5 Allergy status to narcotic agent; Z88.8 Allergy status to other drugs, medicaments and biological substances; Z83.79 Family history of other diseases of the digestive system
CPT/HCPCS: 36415; 70450; 80053; 82140; 82962; 83036; 84439; 84443; 84481; 85025; J1815; J3010; J7030